=== PATIENT | male | born 1940 | race Caucasian/White ===

== ENCOUNTER 2017-11-27 16:14 | Emergency (ER) | payer OTHER, MEDICARE ==
[~2017-11-27 16:14] MED LIST: ASPI-555 PO; CLOP75TA32 PO; FURO20TA4 PO; LISI-613 PO; METF-446 PO; SITA50TA PO; TAMS0.4C32 PO
[2017-11-27 17:00] LABS: CREATININE 0.9 mg/dL (0.5-1.5); POTASSIUM 4.4 mmol/L (3.5-5.1)
[2017-11-27 17:05] LABS: ALBUMIN 3.4 g/dL (3.5-5.0); BILIRUBIN,DIRECT 0.1 mg/dL (0.0-0.3); BILIRUBIN,TOTAL 0.3 mg/dL (0.2-1.0)
[2017-11-27] MEDS ORDERED: METHYLPREDNISOLONE SOD SUCC 125MG/2ML VIAL ONE (17:09)
[2017-11-27] MEDS ORDERED: IPRATROPIUM/ALBUTEROL SULFATE 3 ML SOLUTION IH ONE ×2 (17:15→18:16)
[2017-11-27 17:21] LABS: B-TYPE NATRIURETIC PEPTIDE 11 pg/mL (0-100)
[2017-11-27 17:32] LABS: BASOPHILS % (AUTO) 0.5 % (0.0-5.0); HEMATOCRIT 40.6 % (42-54); LYMPHOCYTES % (AUTO) 13.1 % (21.0-51.0); MEAN CORPUSCULAR HEMOGLOBIN 29.9 pg (27.0-33.0); MEAN CORPUSCULAR HGB CONC 32.8 g/dL (32.0-36.0); MONOCYTES % (AUTO) 9.7 % (3.0-13.0); NEUTROPHILS % (AUTO) 75.7 % (40.0-77.0); PLATELET COUNT (AUTO) 166 K/uL (130-400); RED BLOOD CELL COUNT(AUTO) 4.46 MIL/uL (4.50-6.20); RED CELL DISTRIBUTION WIDTH 13.9 % (11.0-15.5); WHITE BLOOD COUNT (AUTO) 11.9 K/uL (4.8-10.8)
== END 2017-11-27 18:41 | disposition home or self-care (01) ==
LOC: EDH 16:14
DX: J44.1 Chronic obstructive pulmonary disease with (acute) exacerbation (principal); I25.10 Atherosclerotic heart disease of native coronary artery without angina pectoris; E11.9 Type 2 diabetes mellitus without complications; E78.5 Hyperlipidemia, unspecified; I10 Essential (primary) hypertension; Z98.890 Other specified postprocedural states; Z87.891 Personal history of nicotine dependence
CPT/HCPCS: 36415; 71045; 80048; 80076; 83880; 84484; 85025; 85378; 93005; 94640 ×2; 96374; 99285; J2930

== ENCOUNTER 2018-06-14 22:05 | Emergency (ER) | payer OTHER, MEDICARE ==
[2018-06-14] MEDS ORDERED: IPRATROPIUM/ALBUTEROL SULFATE 3 ML SOLUTION IH ONE (22:56)
[2018-06-14 23:12] LABS: BASOPHILS % (AUTO) 0.5 % (0.0-5.0); EOSINOPHILS % (AUTO) 1.3 % (0.0-8.0); HEMATOCRIT 39.8 % (42-54); LYMPHOCYTES % (AUTO) 11.6 % (21.0-51.0); MEAN CORPUSCULAR HEMOGLOBIN 30.5 pg (27.0-33.0); MEAN CORPUSCULAR HGB CONC 33.5 g/dL (32.0-36.0); MEAN CORPUSCULAR VOLUME 91.2 fL (79-99); MONOCYTES % (AUTO) 11.3 % (3.0-13.0); NEUTROPHILS % (AUTO) 75.3 % (40.0-77.0); PLATELET COUNT (AUTO) 177 K/uL (130-400); RED BLOOD CELL COUNT(AUTO) 4.36 MIL/uL (4.50-6.20); RED CELL DISTRIBUTION WIDTH 14.2 % (11.0-15.5); WHITE BLOOD COUNT (AUTO) 7.5 K/uL (4.8-10.8)
[2018-06-14 23:16] LABS: POTASSIUM 4.3 mmol/L (3.5-5.1)
[2018-06-14 23:20] LABS: ALBUMIN 3.6 g/dL (3.5-5.0); BILIRUBIN,TOTAL 0.6 mg/dL (0.2-1.0); TOTAL PROTEIN, SERUM 8.1 g/dL (6.0-8.3)
[2018-06-14] MEDS ORDERED: AZITHROMYCIN 500MG+NS 250ML 250 ML IV ONE (23:20)
[2018-06-14 23:22] LABS: INR 1.01 (0.85-1.15); PARTIAL THROMBOPLASTIN TIME 23.8 SEC (26.3-35.5); PROTHROMBIN TIME 10.6 SEC (9.6-11.6)
[2018-06-14 23:34] LABS: B-TYPE NATRIURETIC PEPTIDE 14 pg/mL (0-100)
[2018-06-14 23:48] LABS: APPEARANCE,URINE Clear (CLEAR); BILIRUBIN,URINE Negative (NEGATIVE); COLOR,URINE Yellow (YELLOW); GLUCOSE, URINE (UA) >=1000 mg/dL (NEGATIVE); KETONES,URINE Negative (NEGATIVE); LEUKOCYTE ESTERASE ,URINE Negative (NEGATIVE); NITRATE,URINE Negative (NEGATIVE); OCCULT BLOOD,URINE Negative (NEGATIVE); PROTEIN,URINE Negative (NEGATIVE)
[2018-06-14 23:59] LABS: BACTERIA,URINE None Seen /HPF (None Seen); RBC,URINE None Seen /HPF (0-1); SQUAMOUS EPITHELIAL CELL,UR Rare /HPF (0-2); WBC,URINE None Seen /HPF (0-1); YEAST,URINE BUDDING None Seen /HPF (None Seen)
[2018-06-15] MEDS ORDERED: ALBUTEROL SULFATE 0.083% 2.5 MG/3 ML INH IH ONE ×2 (00:57→02:51)
[2018-06-15] MEDS ORDERED: METHYLPREDNISOLONE SOD SUCC 125MG/2ML VIAL ONE (01:04)
== END 2018-06-15 03:35 | disposition home or self-care (01) ==
LOC: EDH 22:05
DX: J44.1 Chronic obstructive pulmonary disease with (acute) exacerbation (principal); J20.9 Acute bronchitis, unspecified; I25.10 Atherosclerotic heart disease of native coronary artery without angina pectoris; E78.5 Hyperlipidemia, unspecified; I10 Essential (primary) hypertension; Z87.891 Personal history of nicotine dependence; Z90.49 Acquired absence of other specified parts of digestive tract
CPT/HCPCS: 36415 ×2; 71045; 80053; 81001; 82550; 83605 ×2; 83880; 84484; 85025; 85610; 85730; 87040; 87088; 87804 ×2; 93005; 94640 ×3; 96365; 96366; 96375; 99285; J0456; J2930

== ENCOUNTER → 2019-01-30 | Outpatient (CLI) | payer OTHER, MEDICARE | END | disposition home or self-care (01) | LOC: SHCH 10:04 | PROVIDERS: ATTEND Internal Medicine Cardiovascular Disease | DX: I73.9 Peripheral vascular disease, unspecified (principal); R59.1 Generalized enlarged lymph nodes; I87.2 Venous insufficiency (chronic) (peripheral); I11.9 Hypertensive heart disease without heart failure; E78.5 Hyperlipidemia, unspecified; I25.10 Atherosclerotic heart disease of native coronary artery without angina pectoris; Z98.890 Other specified postprocedural states; Z96.649 Presence of unspecified artificial hip joint | CPT/HCPCS: 93925; 93970 ==

== ENCOUNTER 2019-06-20 16:00 | Emergency (ER) | payer OTHER, MEDICARE ==
[2019-06-20] MEDS ORDERED: FUROSEMIDE 40 MG TABLET ONE (16:41)
[2019-06-20 16:45] LABS: BASOPHILS % (AUTO) 0.5 % (0.0-5.0); EOSINOPHILS % (AUTO) 1.1 % (0.0-8.0); LYMPHOCYTES % (AUTO) 22.4 % (21.0-51.0); MEAN CORPUSCULAR HEMOGLOBIN 30.1 pg (27.0-33.0); MEAN CORPUSCULAR VOLUME 91.5 fL (79-99); MONOCYTES % (AUTO) 8.9 % (3.0-13.0); NEUTROPHILS % (AUTO) 66.5 % (40.0-77.0); PLATELET COUNT (AUTO) 204 K/uL (130-400); RED BLOOD CELL COUNT(AUTO) 4.81 MIL/uL (4.50-6.20); RED CELL DISTRIBUTION WIDTH 13.3 % (11.0-15.5); WHITE BLOOD COUNT (AUTO) 8.4 K/uL (4.8-10.8)
[2019-06-20 16:56] LABS: CREATININE 1.2 mg/dL (0.5-1.5); POTASSIUM 4.5 mmol/L (3.5-5.1)
[2019-06-20 17:00] LABS: ALBUMIN 3.6 g/dL (3.5-5.0); BILIRUBIN,TOTAL 0.3 mg/dL (0.2-1.0); TOTAL PROTEIN, SERUM 7.5 g/dL (6.0-8.3)
[2019-06-20 17:17] LABS: B-TYPE NATRIURETIC PEPTIDE < 5 pg/mL (0-100)
== END 2019-06-20 18:04 | disposition home or self-care (01) ==
LOC: EDH 16:00
DX: R06.00 Dyspnea, unspecified (principal); I10 Essential (primary) hypertension; E11.9 Type 2 diabetes mellitus without complications; J44.9 Chronic obstructive pulmonary disease, unspecified; E78.5 Hyperlipidemia, unspecified; I25.10 Atherosclerotic heart disease of native coronary artery without angina pectoris; Z87.891 Personal history of nicotine dependence; Z91.011 Allergy to milk products
CPT/HCPCS: 36415; 71045; 80053; 82550; 83880; 84484; 85025; 93005

== ENCOUNTER 2019-08-21 09:28 | Inpatient (IN) | payer OTHER, MEDICARE ==
[~2019-08-21] VITALS: Ht 172.7 cm; Wt 127.3 kg
[~2019-08-21 09:28] MED LIST changes: -ASPI-555 PO; +ASPI-556 PO
[2019-08-21] MEDS ORDERED: CEFTRIAXONE SODIUM 2 GM VIAL ONE (10:00)
[2019-08-21] MEDS ORDERED: SODIUM CHLORIDE 0.9% 50 ML IV ONE (10:01)
[2019-08-21 10:15] LABS: BASOPHILS % (AUTO) 0.3 % (0.0-5.0); HEMATOCRIT 43.2 % (42-54); LYMPHOCYTES % (AUTO) 5.3 % (21.0-51.0); MEAN CORPUSCULAR HEMOGLOBIN 30.3 pg (27.0-33.0); MEAN CORPUSCULAR HGB CONC 33.1 g/dL (32.0-36.0); MEAN CORPUSCULAR VOLUME 91.5 fL (79-99); MONOCYTES % (AUTO) 10.7 % (3.0-13.0); NEUTROPHILS % (AUTO) 82.7 % (40.0-77.0); PLATELET COUNT (AUTO) 188 K/uL (130-400); RED BLOOD CELL COUNT(AUTO) 4.72 MIL/uL (4.50-6.20); RED CELL DISTRIBUTION WIDTH 13.2 % (11.0-15.5); WHITE BLOOD COUNT (AUTO) 11.8 K/uL (4.8-10.8)
[2019-08-21 10:16] LABS: CARBON DIOXIDE 29 mmol/L (21-32); CHLORIDE 97 mmol/L (101-111); CREATININE 1.3 mg/dL (0.5-1.5); GLOMERULAR FILTR. RATE CALC 56 mL/min (>60); GLUCOSE,RANDOM 319 mg/dL (70-105); POTASSIUM 4.1 mmol/L (3.5-5.1); SODIUM SERUM 133 mmol/L (136-145); UREA NITROGEN, BLOOD 13 mg/dL (7-18)
[2019-08-21 10:34] LABS: INR 1.04 (0.85-1.15); PARTIAL THROMBOPLASTIN TIME 26.8 SEC (26.3-35.5); PROTHROMBIN TIME 11.2 SEC (9.6-11.6)
[2019-08-21 10:46] LABS: ABG HCO3 31.1 mmol/L (21.0-28.0); ABG OXYGEN SATURATION 94.7 % (95.0-99.0); ABG PCO2 42 mmHg (35-48)
[2019-08-21 10:47] LABS: ALANINE AMINOTRANSFERASE 31 U/L (12-78); ALBUMIN 2.9 g/dL (3.5-5.0); ASPARTATE AMINOTRANSFERASE 118 U/L (10-37); BILIRUBIN,TOTAL 0.9 mg/dL (0.2-1.0); MYOGLOBIN 2987 ng/mL (10-92); TOTAL PROTEIN, SERUM 7.1 g/dL (6.0-8.3); TROPONIN I < 0.04 ng/mL (0.00-0.06)
[2019-08-21 10:54] LABS: B-TYPE NATRIURETIC PEPTIDE 36 pg/mL (0-100); CREATINE KINASE, TOTAL 5185 U/L (21-232)
[2019-08-21] MEDS ORDERED: SODIUM CHLORIDE 0.9% 1000ML 1,000 ML IV ONE ×2 (10:59→15:16)
[2019-08-21 12:19] LABS: APPEARANCE,URINE CLOUDY (CLEAR); BILIRUBIN,URINE NEGATIVE (NEGATIVE); COLOR,URINE YELLOW (YELLOW); GLUCOSE, URINE (UA) >=1000 mg/dL (NEGATIVE); KETONES,URINE NEGATIVE (NEGATIVE); LEUKOCYTE ESTERASE ,URINE MODERATE (NEGATIVE); NITRATE,URINE POSITIVE (NEGATIVE); OCCULT BLOOD,URINE LARGE (NEGATIVE); PROTEIN,URINE 30 mg/dL (NEGATIVE); UROBILINOGEN,URINE 0.2 mg/dL (0.2-1.0)
[2019-08-21 12:31] LABS: BACTERIA,URINE Many /HPF (None Seen); WBC,URINE TNTC /HPF (0-1)
[2019-08-21] MEDS: SODIUM CHLORIDE 0.9% 1000ML 1,000 ML IV SCH (13:47)
[2019-08-21] MEDS ORDERED: ACETAMINOPHEN 325 MG TAB PO PRN ×2 (14:00)
[2019-08-21] MEDS ORDERED: ONDANSETRON HCL 4 MG/2 ML VIAL IV PRN (14:00)
[2019-08-21] MEDS ORDERED: HYDRALAZINE HCL 20 MG/ML VIAL IV PRN (14:00)
[2019-08-21] MEDS: BENZONATATE 100 MG CAPSULE PO SCH ×2 (14:00→20:30)
[2019-08-21] MEDS ORDERED: LACTULOSE 20 GM/30 ML UDCUP PO PRN (14:00)
[2019-08-21] MEDS ORDERED: BENZONATATE 100 MG CAPSULE PO ONE (15:16)
[2019-08-21] MEDS ORDERED: HYDRALAZINE HCL 20 MG/ML VIAL ONE (16:29)
[2019-08-21] MEDS: ZOSYN 3.375GM+NS 50ML 50 ML IV SCH (18:04)
--- NOTE | 2019-08-21 18:24 | NUR ---
TO CT SCAN VIA BED.
[2019-08-21] MEDS ORDERED: FLUT1AER IH (18:29)
[2019-08-21] MEDS ORDERED: METO100T14 PO (18:29)
[2019-08-21] MEDS ORDERED: SIMV-43 PO (18:29)
[2019-08-21] MEDS ORDERED: ADV250 IH (18:29)
[2019-08-21 19:05] VITALS: BP 158/93
[2019-08-21 19:17] VITALS: BP 150/73
[2019-08-21] MEDS: FAMOTIDINE 20MG TAB 20 MG TAB PO SCH (20:30)
[2019-08-21 23:02] VITALS: BP 159/75
[2019-08-22] MEDS: SODIUM CHLORIDE 0.9% 1000ML 1,000 ML IV SCH ×3 (02:23→19:47)
[2019-08-22] MEDS: ZOSYN 3.375GM+NS 50ML 50 ML IV SCH ×3 (02:25→16:13)
[2019-08-22 02:50] LABS: BASOPHILS % (AUTO) 0.3 % (0.0-5.0); EOSINOPHILS % (AUTO) 0.3 % (0.0-8.0); HEMATOCRIT 42.1 % (42-54); MEAN CORPUSCULAR HGB CONC 32.3 g/dL (32.0-36.0); MEAN CORPUSCULAR VOLUME 92.7 fL (79-99); MONOCYTES % (AUTO) 12.4 % (3.0-13.0); NEUTROPHILS % (AUTO) 76.3 % (40.0-77.0); PLATELET COUNT (AUTO) 173 K/uL (130-400); RED BLOOD CELL COUNT(AUTO) 4.54 MIL/uL (4.50-6.20); RED CELL DISTRIBUTION WIDTH 13.3 % (11.0-15.5); WHITE BLOOD COUNT (AUTO) 10.6 K/uL (4.8-10.8)
[2019-08-22 03:03] VITALS: BP 160/83
[2019-08-22 03:23] LABS: POTASSIUM 3.9 mmol/L (3.5-5.1)
[2019-08-22 08:00] VITALS: BP 154/74
[2019-08-22] MEDS: LEVOFLOXACIN 500 MG/D5W 100 ML 100 ML IV SCH (08:30)
[2019-08-22] MEDS: FAMOTIDINE 20MG TAB 20 MG TAB PO SCH ×2 (09:12→22:14)
[2019-08-22] MEDS: BENZONATATE 100 MG CAPSULE PO SCH ×3 (09:12→22:14)
[2019-08-22] MEDS: ENOXAPARIN SODIUM 40 MG/0.4 ML SYRINGE SQ SCH (09:14)
[2019-08-22 12:00] VITALS: BP 148/72
--- NOTE | 2019-08-22 13:34 | NUR ---
NUTRITION EDUCATION Heart Failure Nutrition Education provided. Education materials placed in Pt chart secondary to isolation protocol. RD to follow up. Addendum: 08/22/19 at [address] RD Amended: Links added.
--- NOTE | 2019-08-22 13:44 | NUR ---
RD NOTIFICATION - TRIGGER Pt admitted with CHF exacerbation, UTI. Pt contacted via phone d/t Isolation protocol. Pt reports good appetite at 75%. No report of GI distress and no food allergies. Pt also provided Ht of 5' 8". Pt with Obesity Class III (41.5). Pt with BLE 3+ edema. Recommend advance diet as tolerated to Heart Healthy, 75gm CC diet with 1500mL Fluid Restriction Nutrition Education placed in Pt chart. RD to continue to monitor. Please notify as additional nutrition concerns arise. Thank you. Addendum: 08/22/19 at [address] RD Amended: Links added.
--- NOTE | 2019-08-22 14:26 | NUR ---
CAS PLAN PATIENT IN COVID UNIT PENDING RESULTS. CATALINA WILL CONTINUE TO FOLLOW. Addendum: 08/22/19 at 1427 by MARITZA BARFIELD RN CM Amended: Links added.
--- NOTE | 2019-08-22 17:09 | NUR ---
RECEIVED PT TRANSFER FROM THE 2ND FLOOR, I HAVE ORIENTED HIM TO ROOM, CALL LIGHT SYSTEM AND PLAN OF CARE.
--- NOTE | 2019-08-22 18:14 | NUR ---
LAB REPORTED TOTAL CK OF 1528 WHICH IS TRENDING DOWN FROM EARLIER LEVEL OF 2745
[2019-08-22 19:48] VITALS: BP 152/78
[2019-08-22 23:40] VITALS: BP 160/83
[2019-08-23] MEDS: ZOSYN 3.375GM+NS 50ML 50 ML IV SCH ×2 (00:33→09:18)
[2019-08-23 04:00] VITALS: BP 167/86
[2019-08-23 05:28] LABS: BASOPHILS % (AUTO) 0.4 % (0.0-5.0); EOSINOPHILS % (AUTO) 1.1 % (0.0-8.0); HEMATOCRIT 37.2 % (42-54); LYMPHOCYTES % (AUTO) 16.5 % (21.0-51.0); MEAN CORPUSCULAR HEMOGLOBIN 30.3 pg (27.0-33.0); MEAN CORPUSCULAR HGB CONC 32.5 g/dL (32.0-36.0); MONOCYTES % (AUTO) 13.1 % (3.0-13.0); NEUTROPHILS % (AUTO) 67.9 % (40.0-77.0); PLATELET COUNT (AUTO) 161 K/uL (130-400); RED CELL DISTRIBUTION WIDTH 13.2 % (11.0-15.5)
[2019-08-23] MEDS: SODIUM CHLORIDE 0.9% 1000ML 1,000 ML IV SCH ×2 (05:47→17:31)
[2019-08-23 05:55] LABS: CREATININE 0.9 mg/dL (0.5-1.5)
[2019-08-23 06:05] LABS: B-TYPE NATRIURETIC PEPTIDE 20 pg/mL (0-100)
[2019-08-23 08:00] VITALS: BP 143/77
[2019-08-23] MEDS: LEVOFLOXACIN 500 MG/D5W 100 ML 100 ML IV SCH (08:15)
[2019-08-23] MEDS: BENZONATATE 100 MG CAPSULE PO SCH ×3 (08:16→22:07)
[2019-08-23] MEDS: FAMOTIDINE 20MG TAB 20 MG TAB PO SCH ×2 (08:16→22:07)
[2019-08-23] MEDS: ENOXAPARIN SODIUM 40 MG/0.4 ML SYRINGE SQ SCH (08:17)
[2019-08-23 12:00] VITALS: BP 142/73
--- NOTE | 2019-08-23 12:00 | NUR ---
DR SANTANA HERE TO SEE PATIENT; HE TRIMMED PT'S TOE NAILS AND LEFT A BANDAIDE ON LEFT GREAT TOE
[2019-08-23] MEDS ORDERED: INSULIN GLARGINE 100 UNITS/ML 10 ML VIAL SQ ONE (13:00)
[2019-08-23] MEDS ORDERED: GLUCAGON 1MG KIT 1 MG ML IM PRN (13:00)
[2019-08-23] MEDS ORDERED: DEXTROSE 50%-WATER 50 ML DISP.SYRIN IV PRN (13:00)
--- NOTE | 2019-08-23 13:00 | NUR ---
CAS PLANNING INITIAL ASSESSMENT AT BEDSIDE WHILE DR. SANTANA TRIMMING PATIENTS TOES. PATIENT JOSETTE HAS A GREAT PORVIDER, SHE IS IN AN DOUT ALL THE ITME, HE USES A ROLLING WALKER FOR BALANCE AND SAFE IN THE HOUSE... STATES WANTS TO RETURN HOME WITH PROVIDER ON REVIEWING RECORD NOTED THAT MD STATES PATIENT CONFUSED, NALBE TO MAKE OWN DECISION, CHECK ON GAURDIANSHIP. FACE HSEET HAD BROTHER HARSHAD AND SIB LUCIA CALL TO HARSHAD, NO ANWER, CLAL TO LUCIA, ANSWERED, IS SISTER IN LAW, BOTH BROTHER AND SISITE RIN LAW I PART OF CONVERSATION ABOUT PATIENT STATES LIVES ALONE, FOND OF HIS PROVIDER AVERY, AVERY ALSO WORKS AT [facility], WILL SUGGEST TO PATIENT REHAB THERE WOULD BE A GOOD THING; BROTHBHUPENDRA IS THE POA WENT BACK TO TALK TO PATIENT , VERBAL AGREEMENT FOR [facility], WILL INFORM PRIMARY RN Addendum: 08/23/19 at 2120 by DAXA JAMIL RN CM Amended: Links added.
--- NOTE | 2019-08-23 13:07 | NUR ---
I SPOKE TO ZEINAB JACKSON SHRIMP PACKER FROM [facility] AND INFORMED OF ELEVATED BS OF 310 AND NEED FOR COVERAGE AND RECEIVED ORDERS FOR LANTUS AND SLIDING SCALE INSULIN; I SPOKE TO CATALINA MONTIEL ABOUT FURTHER EVALUATING PT HOME SITUATION BECAUSE HE APPEARS TO LIVE AT HOME ALONE AND IS VERY WEAK AND NOT AMBULATING WELL AND HAS SOME CONFUSION AND MAY NOT BE SAFE TO BE D/C HOME WITHOUT FURTHER CARE.
[2019-08-23] MEDS: INSULIN HUMULIN R 100 UNIT/ML 3ML SQ SCH ×3 (13:30→22:16)
--- NOTE | 2019-08-23 13:52 | NUR ---
WHILE REPOSITIONING PATIENT I NOTICED THAT HE HAD A RASH WITH BLISTERS ALONG HIS LEFT FLANK AND BOTH BUTTOCKS; PT STATES HE WAS NOT AWARE OF HAVING THEM AND DENIED THAT THEY WERE PAINFULL; I PLACED THE PT ON CONTACT ISOLATION AND WILL INFORM MARIA D JACKSON WHEN SHE ROUNDS OF THE FINDINGS.
[2019-08-23] MEDS ORDERED: POTASSIUM CHLORIDE 20MEQ/100ML 100 ML IV PRN (14:00)
[2019-08-23] MEDS ORDERED: LIDOCAINE HCL-MPF 1% 2ML VIAL IV PRN (14:00)
[2019-08-23] MEDS ORDERED: POTASSIUM CHLORIDE 20 MEQ ERTAB PO PRN (14:00)
[2019-08-23] MEDS ORDERED: MAGNESIUM 2GM PREMIX 50ML 50 ML IV PRN (14:00)
[2019-08-23] MEDS ORDERED: POTASSIUM CHLORIDE 10% ELIXIR 20 MEQ/15 ML UDCUP PO PRN (14:00)
--- NOTE | 2019-08-23 15:00 | NUR ---
ORDER FOR DAVID KIRAN PT CHOICE WILL FOLLOW UP IN AM- PATIENTS PLANOF CARE STILL IN FLUX Addendum: 08/23/19 at 2121 by DAXA JAMIL RN CM Amended: Links added.
--- NOTE | 2019-08-23 15:00 | NUR ---
AMAURY JACKSON HERE TO SEE PATIENT; I SHOWED HER THE BLISTERS ON PT'S LEFT FLANK AND SHE STATED THAT IT IS SHINGLES AND SHE WOULD ORDER SOMETHING FOR IT; SHE ALSO ASKED ABOUT HIM BEING FOUND PASSED OUT IN [place] AND PT WAS A POOR HISTORIAN ABOUT IT NOT RECALLING WHAT HAPPENED; SHE STATED TO GET A SYNCOPE EPISODE WORK UP INCLUDING NEURO AND CARDIOLOGY CONSULT; PT STATED HE WAS UNSURE IF HE SEE'S A CRACKER DOUGH MIXER OR NOT.
--- NOTE | 2019-08-23 15:41 | NUR ---
I SPOKE TO CIRILO FROM [facility] AND INFORMED OF CONSULT AND SHE STATED SHE WOULD SEE THE PATIENT TOMORROW AM UNLESS SOMETHING ACUTE COMES UP THEN TO CALL HER BACK; SHE AGREED WITH ALL THE STUDIES BEING DONE NOW; 2D ECHO, MRI HEAD, CAROTID DOPPLERS AND ORTHOSTATIC VS.
[2019-08-23 16:00] VITALS: BP_SYST 154; BP_SYST 158; BP_SYST 163; BP_DIAS 80; BP_DIAS 86
[2019-08-23] MEDS: CEFTRIAXONE SODIUM 1 GM IVP SCH (17:28)
[2019-08-23 19:35] VITALS: BP 149/86
[2019-08-23] MEDS: VALACYCLOVIR HCL 500 MG TABLET PO SCH (22:06)
[2019-08-23 23:36] VITALS: BP 144/82
[2019-08-24] VITALS (10 sets, daily range): BP systolic 136–169; BP diastolic 68–94
[2019-08-24] MEDS ORDERED: INSULIN HUMULIN R 100 UNIT/ML 3ML SQ SCH
[2019-08-24 06:00] LABS: BASOPHILS % (AUTO) 0.8 % (0.0-5.0); LYMPHOCYTES % (AUTO) 23.4 % (21.0-51.0); MEAN CORPUSCULAR HEMOGLOBIN 29.5 pg (27.0-33.0); MEAN CORPUSCULAR HGB CONC 32.4 g/dL (32.0-36.0); MEAN CORPUSCULAR VOLUME 91.1 fL (79-99); MONOCYTES % (AUTO) 11.3 % (3.0-13.0); NEUTROPHILS % (AUTO) 61.1 % (40.0-77.0); PLATELET COUNT (AUTO) 164 K/uL (130-400); RED BLOOD CELL COUNT(AUTO) 4.17 MIL/uL (4.50-6.20); RED CELL DISTRIBUTION WIDTH 13.2 % (11.0-15.5); WHITE BLOOD COUNT (AUTO) 6.4 K/uL (4.8-10.8)
--- NOTE | 2019-08-24 06:24 | NUR ---
Re: Bladder training Bladder training observed, pt noted no sensation at all at 6 & 5 hours clamping, Ramirez catheter re-clamped at this time. Pt reminded to notify us once he would felt the urge to void, agreed.
[2019-08-24 06:40] LABS: HEMOGLOBIN A1C 10.9 % (4.0-6.0)
[2019-08-24] MEDS: INSULIN HUMULIN R 100 UNIT/ML 3ML SQ SCH ×4 (06:41→20:56)
[2019-08-24 07:25] LABS: ALBUMIN 2.1 g/dL (3.5-5.0); BILIRUBIN,TOTAL 0.3 mg/dL (0.2-1.0); CREATININE 0.9 mg/dL (0.5-1.5); POTASSIUM 4.2 mmol/L (3.5-5.1); TOTAL PROTEIN, SERUM 5.9 g/dL (6.0-8.3)
[2019-08-24] MEDS: BENZONATATE 100 MG CAPSULE PO SCH ×3 (08:44→20:46)
[2019-08-24] MEDS: FAMOTIDINE 20MG TAB 20 MG TAB PO SCH ×2 (08:44→20:46)
[2019-08-24] MEDS: VALACYCLOVIR HCL 500 MG TABLET PO SCH ×3 (08:44→20:46)
[2019-08-24] MEDS: ENOXAPARIN SODIUM 40 MG/0.4 ML SYRINGE SQ SCH (08:46)
[2019-08-24] MEDS: ALBUTEROL SULFATE 0.083% 2.5 MG/3 ML INH IH SCH ×3 (11:36→23:14)
[2019-08-24] MEDS: LINAGLIPTIN 5 MG TABLET PO SCH (12:26)
[2019-08-24] MEDS: SODIUM CHLORIDE 0.9% 1000ML 1,000 ML IV SCH (12:30)
--- NOTE | 2019-08-24 12:45 | NUR ---
PT C/O NEED TO VOID, THE BUNDY IS CLAMPED AT THIS TIME AND HE ALSO HAS NOT HAD A BM SINCE ADMISSION; I HAVE REMOVED 10CC OF FLUID FROM CATHETOR BALLOON AND THEN REMOVED CATHETOR, PT IS DTV; I HAVE ALSO GIVEN PT A FLEETS ENEMA AND ASSISTED PT TO THE BATHROOM--HE IMMEDIATLY STARTED HAVING A BOWEL MOVEMENT.
[2019-08-24] MEDS: METFORMIN HCL 500 MG TABLET PO SCH (17:18)
[2019-08-24] MEDS: CEFTRIAXONE SODIUM 1 GM IVP SCH (17:20)
[2019-08-24] MEDS: BUDESONIDE 0.5 MG/2 ML INH IH SCH (18:12)
[2019-08-24] MEDS: METOPROLOL TARTRATE 50 MG TAB PO SCH (20:46)
--- NOTE | 2019-08-24 20:53 | NUR ---
MEDS SHIFT ASSESSMENT DONE, PLEASE REFER TO CHART. DUE MEDS ADMINISTERED, TOLERATED WELL. KEPT RESTED AND COMFORTABLE IN BED WITH HOB ELEVATED. CALL LIGHT WITHIN REACH. WILL MONITOR PT. Addendum: 08/25/19 at 0031 by ZOLTAN MCGRATH RN RN Amended: Links added.
[2019-08-24] MEDS ORDERED: SIMVASTATIN 20 MG TABLET PO SCH (21:00)
[2019-08-24] MEDS ORDERED: TAMSULOSIN HCL 0.4 MG CAP.ER.24H PO SCH (21:00)
[2019-08-24] MEDS ORDERED: INSULIN GLARGINE 100 UNITS/ML 10 ML VIAL SQ SCH (21:00)
--- NOTE | 2019-08-25 02:00 | NUR ---
ROUNDS PT FAIRLY ASLEEP WITH RESPIRATIONS EVEN AND UNLABORED. NO NOTED DISTRESS. KEPT UNDISTURBED FOR NOW. WILL MONITOR PT. CALL LIGHT WITHIN REACH.
[2019-08-25 04:20] VITALS: BP 118/82
--- NOTE | 2019-08-25 05:27 | NUR ---
ROUNDS PT RESTING WELL. NO COMPLAINTS VERBALIZED. KEPT COMFORTABLE IN BED. FOR MORE CARE.
--- NOTE | 2019-08-25 05:42 | NUR ---
CONGESTION PT COMPLAINTS OF NASAL CONGESTION AT THIS TIME AND UNABLE TO BREATH THROUGH HIS NOSE. PAGED MS BRIDGET SANTANA NP MERCHANDISING ASSISTANT FOR HOSPITALIST, VIA ANSWERING SERVICE. AWAITING CALL BACK.
[2019-08-25 06:01] LABS: BASOPHILS % (AUTO) 0.5 % (0.0-5.0); EOSINOPHILS % (AUTO) 2.6 % (0.0-8.0); HEMATOCRIT 38.4 % (42-54); LYMPHOCYTES % (AUTO) 24.6 % (21.0-51.0); MEAN CORPUSCULAR HEMOGLOBIN 29.6 pg (27.0-33.0); MEAN CORPUSCULAR VOLUME 92.5 fL (79-99); MONOCYTES % (AUTO) 10.5 % (3.0-13.0); NEUTROPHILS % (AUTO) 60.5 % (40.0-77.0); PLATELET COUNT (AUTO) 208 K/uL (130-400); RED BLOOD CELL COUNT(AUTO) 4.15 MIL/uL (4.50-6.20); RED CELL DISTRIBUTION WIDTH 13.2 % (11.0-15.5); WHITE BLOOD COUNT (AUTO) 8.2 K/uL (4.8-10.8)
[2019-08-25] MEDS: SODIUM CHLORIDE 0.9% 1000ML 1,000 ML IV SCH (06:03)
[2019-08-25] MEDS: INSULIN HUMULIN R 100 UNIT/ML 3ML SQ SCH (06:04)
[2019-08-25 06:18] LABS: ALBUMIN 2.2 g/dL (3.5-5.0); BILIRUBIN,TOTAL 0.3 mg/dL (0.2-1.0); CREATININE 0.8 mg/dL (0.5-1.5); POTASSIUM 3.9 mmol/L (3.5-5.1); TOTAL PROTEIN, SERUM 5.8 g/dL (6.0-8.3)
[2019-08-25] MEDS: ALBUTEROL SULFATE 0.083% 2.5 MG/3 ML INH IH SCH (06:42)
[2019-08-25] MEDS: BUDESONIDE 0.5 MG/2 ML INH IH SCH (06:42)
--- NOTE | 2019-08-25 06:44 | NUR ---
SOIL FERTILITY SPECIALIST SOIL FERTILITY SPECIALIST BRIDGET SANTANA, CALLED BACK AND REFERRED PT'S COMPLAINTS. NEW ORDERS GIVEN, PLEASE REFER TO CPOE. WILL ENDORSE TO AM SHIFT TO MEDICATE PT ONCE MEDS AVAILABLE.
[2019-08-25] MEDS ORDERED: SODIUM CHLORIDE 45 ML SPRY NS PRN (06:45)
--- NOTE | 2019-08-25 08:00 | NUR ---
Desmond REBOLLEDO states pt is discharged from cardio standpoint ,pt states wheres my clothes I am ready to go ,explained to pt he still needs to see Dr Rush, Addendum: 08/25/19 at 1315 by KYAW WELSH RN RN Amended: Links added.
[2019-08-25] MEDS: METFORMIN HCL 500 MG TABLET PO SCH (08:15)
[2019-08-25 08:44] VITALS: BP 155/76
[2019-08-25] MEDS ORDERED: CLOPIDOGREL BISULFATE 75 MG TAB PO SCH (09:00)
[2019-08-25] MEDS ORDERED: FUROSEMIDE 20 MG TABLET PO SCH (09:00)
[2019-08-25] MEDS ORDERED: ASPIRIN 81 MG EC TAB PO SCH (09:00)
[2019-08-25] MEDS ORDERED: SUB TO BREO ELLIPTA 100MCG/25MCG PER P&T IH SCH (09:00)
[2019-08-25] MEDS ORDERED: FLUTICASONE/VILANTEROL 1 EACH AER.POW.BA IH SCH (09:00)
[2019-08-25] MEDS ORDERED: LISINOPRIL 20 MG TABLET PO SCH (09:00)
--- NOTE | 2019-08-25 09:00 | NUR ---
Dr Mock here states pt can be discharged Addendum: 08/25/19 at 1315 by KYAW WELSH RN RN Amended: Links added.
[2019-08-25] MEDS: METOPROLOL TARTRATE 50 MG TAB PO SCH (09:13)
[2019-08-25] MEDS: FAMOTIDINE 20MG TAB 20 MG TAB PO SCH (09:13)
[2019-08-25] MEDS: LINAGLIPTIN 5 MG TABLET PO SCH (09:15)
[2019-08-25] MEDS: BENZONATATE 100 MG CAPSULE PO SCH (09:15)
[2019-08-25] MEDS: VALACYCLOVIR HCL 500 MG TABLET PO SCH (09:16)
[2019-08-25] MEDS: ENOXAPARIN SODIUM 40 MG/0.4 ML SYRINGE SQ SCH (09:17)
--- NOTE | 2019-08-25 10:00 | NUR ---
Dr Rush here spoke with pt ordered an EEG ,pt does not want EEG wants to go home and follow up as an outpatient ,pt very anxious to go home Addendum: 08/25/19 at 1323 by KYAW WELSH RN RN Amended: Links added.
--- NOTE | 2019-08-25 10:30 | NUR ---
DISCHARGE PLAN pt had already told geriatric case manager prior this am he wanted to go home ,brother wants him to go to [facility] .Sharon Carrillo RN geriatric case manager spoke with brother and sister in law ,pt wants to go home Addendum: 08/25/19 at 1335 by KYAW WELSH RN RN Amended: Links added.
[2019-08-25] MEDS ORDERED: VALA500T PO (10:46)
[2019-08-25] MEDS ORDERED: BACI500P3 TP (10:46)
--- NOTE | 2019-08-26 16:15 | NUR ---
DISCHARGE PLAN TO HOME- DECLINED SNF- SPOKE AT LENGTH TO PATIENT, BROTHER HARSHAD AND SISTER IN LAW LUCIA VIA PHONE FAMILY DISAGREEMENT ABOUT PATIENT GOING TO [facility]- PATIENT IS DECLINING, FAMILY WANTS HIM TO GO. IF THEY GO, THEY WANT TO GO RIGHT NOW, TODAY. ADVISED THEM THAT THERE IS NOT A REFERRAL IN PLACE YET - [facility] READY TO SEND, BUT NOW IWTH NEW DX OF SHINGLES- PATIENT TRUNK, FLANK AND BACK REVIEWED- PATENT WITH SHIRT OFF IN HIS ROOM, RAW PATCHES AND WEEPING LESIONS, ADVISED RN THAT WE NEED ORDERS FOR SKIN CARE WOUND CARE. ADVISED NEW DX OF SHINGLES TO [facility], STATES UNLIKELY TO ADMIT UNTIL LESIONS ARE DRY, PATIENT STATES DOES NOT WANT TO WAIT IF HE CAN GO TO [facility] RIGHT *NOW* HE WANTS TO GO HOME. NUMBER TO QIANA MORENO REP GIVEN TO LUCIA SISTER IN LAWY FOR ADVICE ON POSSIBLE ADMIT FROM HOME IF NEEDSLATER Addendum: 08/26/19 at 1619 by DAXA JAMIL RN CM Amended: Links added.
== END 2019-08-25 12:04 | disposition home or self-care (01) | DRG 871 ==
LOC: EDH 09:28 → EDHIP 13:47 → 2DH 17:59 → 3BH 08-22 17:25
PROVIDERS: ADMIT Internal Medicine; ATTEND Internal Medicine
PROC: 0HBRXZZ Excision of Toe Nail, External Approach (ICD-10-PCS; principal; 2019-08-24)
DX: A41.9 Sepsis, unspecified organism (principal); J18.9 Pneumonia, unspecified organism; I50.33 Acute on chronic diastolic (congestive) heart failure; I13.0 Hypertensive heart and chronic kidney disease with heart failure and stage 1 through stage 4 chronic kidney disease, or unspecified chronic kidney disease; N39.0 Urinary tract infection, site not specified; M62.82 Rhabdomyolysis; Z68.41 Body mass index [BMI] 40.0-44.9, adult; J44.0 Chronic obstructive pulmonary disease with (acute) lower respiratory infection; J98.11 Atelectasis; E86.9 Volume depletion, unspecified; I89.0 Lymphedema, not elsewhere classified; B02.9 Zoster without complications; B35.1 Tinea unguium; E11.22 Type 2 diabetes mellitus with diabetic chronic kidney disease; E11.42 Type 2 diabetes mellitus with diabetic polyneuropathy; E11.51 Type 2 diabetes mellitus with diabetic peripheral angiopathy without gangrene; E66.9 Obesity, unspecified; E78.5 Hyperlipidemia, unspecified; I25.10 Atherosclerotic heart disease of native coronary artery without angina pectoris; K76.0 Fatty (change of) liver, not elsewhere classified; I35.8 Other nonrheumatic aortic valve disorders; K76.9 Liver disease, unspecified; L60.0 Ingrowing nail; L60.2 Onychogryphosis; N18.2 Chronic kidney disease, stage 2 (mild); Z20.828 Contact with and (suspected) exposure to other viral communicable diseases; W19.XXXA Unspecified fall, initial encounter; Y93.89 Activity, other specified; Y92.098 Other place in other non-institutional residence as the place of occurrence of the external cause; Y99.8 Other external cause status; Z79.51 Long term (current) use of inhaled steroids; Z79.82 Long term (current) use of aspirin; Z79.84 Long term (current) use of oral hypoglycemic drugs; Z79.899 Other long term (current) drug therapy; Z87.891 Personal history of nicotine dependence; Z95.5 Presence of coronary angioplasty implant and graft; Z88.8 Allergy status to other drugs, medicaments and biological substances
CPT/HCPCS: 36415; 36600; 70450; 70551; 71045; 71250; 80048; 80053; 80061; 81001; 82140; 82550; 82803; 82948; 83036; 83605; 83735; 83874; 83880; 84145; 84484; 85025; 85610; 85730; 87040; 87088; 87635; 87804; 93005; 93306; 93356; 93880; 94640; 94664; 97039; G0378; J0360; J0696; J1650; J1815; J1956; J2543; J7030